=== PATIENT | male | born 1955 | race Two or more races ===

== ENCOUNTER 2018-05-10 10:03 | Emergency (ER) | payer OTHER ==
[~2018-05-10] VITALS: Ht 172.7 cm; Wt 80.7 kg
[2018-05-10] MEDS ORDERED: METFORMIN HCL1000 M1 ORAL (10:11)
[2018-05-10] MEDS ORDERED: GLIPIZIDE5 MG ORAL (10:11)
[2018-05-10 10:24] VITALS: BP 116/60
[2018-05-10] MEDS ORDERED: Sodium Chloride 500ML 500 ML IV ONE (10:24)
--- NOTE | 2018-05-10 10:54 | NUR ---
ED Nurse Note:pt. came with general weakness and dry coughing complain, A/Ox4 skin is intact, left BKA with stump, pt. was placed on 2L O2 via N/C for mely O2 sats, blood sent to labs, given IV fluids and connected to equipment monitor phototypesetting
[2018-05-10 11:08] LABS: ANION GAP 7 mmol/L (5-15); BASOPHILS % (AUTO) 0.8 % (0.0-2.0); BLOOD UREA NITROGEN 10 mg/dL (7-18); CALCIUM 8.5 MG/DL (8.5-10.1); CARBON DIOXIDE 31 MMOL/L (21-32); CHLORIDE 93 MMOL/L (98-107); CREATININE 1.1 MG/DL (0.55-1.30); EOSINOPHILS % (AUTO) 0.8 % (0.0-3.0); HEMATOCRIT 37.9 % (42.0-52.0); HEMOGLOBIN 12.4 G/DL (14.2-18.0); LYMPHOCYTES % (AUTO) 17.2 % (20.0-45.0); MEAN CORPUSCULAR VOLUME 93 FL (80-99); MONOCYTES % (AUTO) 5.3 % (1.0-10.0); NEUTROPHILS % (AUTO) 75.9 % (45.0-75.0); PLATELET COUNT 292 K/UL (150-450); RED BLOOD COUNT 4.09 M/UL (4.70-6.10); RED CELL DISTRIBUTION WIDTH 13.6 % (11.6-14.8); SODIUM 131 MMOL/L (136-145)
--- NOTE | 2018-05-10 11:18 | Diagnostic Imaging Report ---
Indication: Chest pain Comparison: None A single view chest radiograph was obtained. Findings: Interstitial densities, prominent pulmonary vascularity and heart size are demonstrated. No pleural effusion seen. IMPRESSION: Suspected CHF/interstitial edema.
[2018-05-10 11:24] LABS: ALANINE AMINOTRANSFERASE 29 U/L (12-78); ALBUMIN 2.8 G/DL (3.4-5.0); ALBUMIN/GLOBULIN RATIO 0.7 (1.0-2.7); ALKALINE PHOSPHATASE 96 U/L (46-116); ASPARTATE AMINO TRANSFERASE 38 U/L (15-37); BILIRUBIN,TOTAL 0.2 MG/DL (0.2-1.0); CREATINE KINASE 592 U/L (26-308)
[2018-05-10 11:41] LABS: APPEARANCE,URINE CLEAR; BILIRUBIN, URINE NEGATIVE (NEGATIVE); GLUCOSE, URINE (UA) NEGATIVE (NEGATIVE); KETONES,URINE NEGATIVE (NEGATIVE); LEUKOCYTE ESTERASE ,URINE NEGATIVE (NEGATIVE); NITRITE,URINE NEGATIVE (NEGATIVE); PH,URINE 7 (4.5-8.0); PROTEIN,URINE 4+ (NEGATIVE); UROBILINOGEN,URINE NORMAL MG/DL (0.0-1.0)
[2018-05-10 11:44] LABS: COLOR,URINE YELLOW
--- NOTE | 2018-05-10 11:49 | NUR ---
ED Nurse Note:blood cultures were collected and notified about high troponin
[2018-05-10] MEDS ORDERED: Albuterol ud Inhalation HHN ONE (12:00)
--- NOTE | 2018-05-10 12:01 | NUR ---
ED Nurse Note: pt c/o cough and sorethroat, req medication, MD aware of pt's condition.
--- NOTE | 2018-05-10 12:10 | NUR ---
ED Nurse Note: RT at the bedside, pt receiving breathing tx
--- NOTE | 2018-05-10 12:15 | NUR ---
ED Nurse Note: bp prior to lasix administration 121/57 at 1145 bp 1215: 130/70 pt education done. pt verbalized understanding.
--- NOTE | 2018-05-10 12:25 | NUR ---
ED Nurse Note: pt reports breathing tx helped a little but still continued to have cough and sob, ERMD notified.
[2018-05-10 12:35] VITALS: BP 143/64
--- NOTE | 2018-05-10 12:55 | NUR ---
ED Nurse Note:second troponin was drawn
[2018-05-10 13:35] VITALS: BP 130/85
--- NOTE | 2018-05-10 13:36 | NUR ---
ED Nurse Note:pt. was placed on bi-pap by respiratory per ER MD order
--- NOTE | 2018-05-10 14:11 | Emergency Room Report ---
History of Present Illness General Chief Complaint: Generalized Weakness Source: Patient Present Illness HPI Patient presents with complaints of weakness Reports that his diabetes has been fairly poorly controlled also has had increased diarrhea Denies any chest pain he did have some increased cough and congestion Feel some increased shortness of breath with laying down Patient denies any vomiting denies any recent travel denies any pleurisy denies any fevers He also did have some mild increased body aches Denies any neck pain or photophobia Allergies: Coded Allergies: No Known Allergies (Unverified , 05/10/18) Patient History Past Medical History: see triage record Pertinent Family History: none Reviewed Nursing Documentation: PMH: Agreed; PSxH: Agreed Nursing Documentation-PMH Past Medical History: No History, Except For Hx Diabetes: Yes - Right leg above knee amputation Review of Systems All Other Systems: negative except mentioned in HPI Physical Exam Vital Signs Date Time Temp Pulse Resp B/P (MAP) Pulse Ox O2 Delivery O2 Flow Rate FiO2 05/10/18 10:07 98.4 88 18 116/60 80 Room Air 05/10/18 10:24 3.0 05/10/18 10:24 93 Sp02 EP Interpretation: reviewed, normal General Appearance: no apparent distress Head: normocephalic, atraumatic Eyes: bilateral eye PERRL, bilateral eye EOMI ENT: normal pharynx Neck: supple Respiratory: no retraction, no accessory muscle use, crackles - Diffusely Cardiovascular #1: regular rate, rhythm Gastrointestinal: non tender, soft Musculoskeletal: other - Left lower extremity below the knee amputation with prosthetic in place Neurologic: alert, oriented x3, responsive Skin: pallor Lymphatic: no adenopathy Procedures Critical Care Time Critical Care Time 50 minutes for multiple re-evaluations critical findings concerning for cardiac injury multiple consultants not including any procedural time Medical Decision Making Diagnostic Impression: Primary Impression: Non-STEMI (non-ST elevated myocardial infarction) Additional Impression: CHF (congestive heart failure) ER Course Patient is a fairly complex patient with multiple differential to consideration including but not limited to cardiac cardiopulmonary and vascular emergencies Patient's complaints and presentations are concerning After extensive workup and evaluation patient's x-ray was concerning for pulmonary congestion Blood work also revealed elevated troponin level Patient was placed on BiPAP initially considered appropriate for transfer however After repeat troponin is showing some increased findings patient requires further emergent care and Deemed unstable contact is made with inpatient cardiology and patient admitted for further care Labs Test 1/11/19 10:45 05/10/18 11:30 05/10/18 13:15 White Blood Count 12.0 K/UL (4.8-10.8) Red Blood Count 4.09 M/UL (4.70-6.10) Hemoglobin 12.4 G/DL (14.2-18.0) Hematocrit 37.9 % (42.0-52.0) Mean Corpuscular Volume 93 FL (80-99) Mean Corpuscular Hemoglobin 30.2 PG (27.0-31.0) Mean Corpuscular Hemoglobin Concent 32.7 G/DL (32.0-36.0) Red Cell Distribution Width 13.6 % (11.6-14.8) Platelet Count 292 K/UL (150-450) Mean Platelet Volume 5.8 FL (6.5-10.1) Neutrophils (%) (Auto) 75.9 % (45.0-75.0) Lymphocytes (%) (Auto) 17.2 % (20.0-45.0) Monocytes (%) (Auto) 5.3 % (1.0-10.0) Eosinophils (%) (Auto) 0.8 % (0.0-3.0) Basophils (%) (Auto) 0.8 % (0.0-2.0) Sodium Level 131 MMOL/L (136-145) Potassium Level 4.0 MMOL/L (3.5-5.1) Chloride Level 93 MMOL/L (98-107) Carbon Dioxide Level 31 MMOL/L (21-32) Anion Gap 7 mmol/L (5-15) Blood Urea Nitrogen 10 mg/dL (7-18) Creatinine 1.1 MG/DL (0.55-1.30) Estimat Glomerular Filtration Rate > 60 mL/min (>60) Glucose Level 192 MG/DL (74-106) Calcium Level 8.5 MG/DL (8.5-10.1) Total Bilirubin 0.2 MG/DL (0.2-1.0) Aspartate Amino Transf (AST/SGOT) 38 U/L (15-37) Alanine Aminotransferase (ALT/SGPT) 29 U/L (12-78) Alkaline Phosphatase 96 U/L (46-116) Total Creatine Kinase 592 U/L (26-308) Creatine Kinase MB 8.0 NG/ML (0.0-3.6) Creatine Kinase MB Relative Index 1.3 Troponin I 0.667 ng/mL (0.000-0.056) 1.315 ng/mL (0.000-0.056) Pro-B-Type Natriuretic Peptide 2404 pg/mL (0-125) Total Protein 6.6 G/DL (6.4-8.2) Albumin 2.8 G/DL (3.4-5.0) Globulin 3.8 g/dL Albumin/Globulin Ratio 0.7 (1.0-2.7) Lipase 70 U/L (73-393) Urine Color Yellow Urine Appearance Clear Urine pH 7 (4.5-8.0) Urine Specific [place] 1.010 (1.005-1.035) Urine Protein 4+ (NEGATIVE) Urine Glucose (UA) Negative (NEGATIVE) Urine Ketones Negative (NEGATIVE) Urine Blood 2+ (NEGATIVE) Urine Nitrite Negative (NEGATIVE) Urine Bilirubin Negative (NEGATIVE) Urine Urobilinogen Normal MG/DL (0.0-1.0) Urine Leukocyte Esterase Negative (NEGATIVE) Urine RBC 2-4 /HPF (0 - 0) Urine WBC 0 /HPF (0 - 0) Urine Squamous Epithelial Cells None /LPF (NONE/OCC) Urine Bacteria None /HPF (NONE) Urine Opiates Screen Negative (NEGATIVE) Urine Barbiturates Screen Negative (NEGATIVE) Phencyclidine (PCP) Screen Negative (NEGATIVE) Urine Amphetamines Screen Negative (NEGATIVE) Urine Benzodiazepines Screen Negative (NEGATIVE) Urine Cocaine Screen Negative (NEGATIVE) Urine Marijuana (THC) Screen Positive (NEGATIVE) EKG Diagnostic Results Rate: normal Rhythm: NSR ST Segments: other - Nonspecific ST changes no obvious ST elevation indeterminate mild interventricular block Rhythm Strip Diag. Results EP Interpretation: yes Rate: 70 Rhythm: NSR, no PVC's, no ectopy Chest X-Ray Diagnostic Results Chest X-Ray Diagnostic Results : Chest X-Ray Ordered: Yes # of Views/Limited/Complete: 1 View Indication: Chest Pain EP Interpretation: Yes Interpretation: no consolidation, no pneumothorax, other - Pulmonary congestion Impression: Other - Pulmonary congestion Electronically Signed by: Rhona Foote DO Last Vital Signs Date Time Temp Pulse Resp B/P (MAP) Pulse Ox O2 Delivery O2 Flow Rate FiO2 05/10/18 13:35 85 24 130/85 96 Bi-pap 05/10/18 13:34 50 05/10/18 12:35 98.4 3.0 Status: improved Disposition: ADMITTED INPATIENT Condition: Critical Referrals: NON PHYSICIAN (PCP) Rhona Foote DO May 10, 2018 14:11
--- NOTE | 2018-05-10 14:14 | NUR ---
ED Nurse Note:pt. refused bi-pap, called respiratory
[2018-05-10] MEDS: Nitroglycerin 2% oint pkt TOPIC SCH ×2 (15:15→18:00)
[2018-05-10 15:52] VITALS: BP 119/63
[2018-05-10] MEDS ORDERED: NovoLOG Insulin Flexpen SUBQ SCH ×2 (16:30→16:50)
--- NOTE | 2018-05-10 17:00 | NUR ---
ED Nurse Note:called [facility] report to [facility] -they not able to take report at this time
--- NOTE | 2018-05-10 17:10 | Cardiology Report ---
APPROVED REPORT EXAM: Two-dimensional and M-mode echocardiogram with Doppler and color Doppler. INDICATION ACUTE MYOCARD INFARCTION M-Mode DIMENSIONS IVSd1.2 (0.7-1.1cm)Left Atrium (MM)3.4 (1.6-4.0cm) LVDd5.4 (3.5-5.6cm)Aortic Root3.5 (2.0-3.7cm) PWd1.2 (0.7-1.1cm)Aortic Cusp Exc.1.6 (1.5-2.0cm) IVSs1.6 cm LVDs3.1 (2.5-4.0cm) PWs1.4 cm Normal left ventricular chamber size. Global left ventricular hypokinesis . Left ventricular ejection fraction estimated to be 40 %. No evidence of left ventricular hypertrophy . Right sided pricardial effusion present with early diastolic collapse with respiratory variotion . All other cardiac cardiac chamber sizes are within normal limits. Focal aortic valve sclerosis with adequate cusp excursion. Thickened mitral valve leaflets with normal excursion. Mitral annulus and aortic root calcification. Normal pulmonic valve structure. Normal tricuspid valve structure. IVC dilated at 2.5 cm with slightly physiologic collapse suggestive of increased RA pressure. A color flow and spectral Doppler study was performed and revealed: Mild aortic regurgitation. Trace mitral regurgitation. Normal left ventricular diastolic function . Mild tricuspid regurgitation. Tricuspid systolic velocities suggests peak right ventricular systolic pressure of 44mmHg, consistent with moderate pulmonary hypertension . Dr. Lo notified.
--- NOTE | 2018-05-10 17:15 | NUR ---
ED Nurse Note:spoke to ICU charge nurse from [facility]- she said they dont have nurse till 1899
[2018-05-10 17:28] VITALS: BP 115/52
--- NOTE | 2018-05-10 17:28 | NUR ---
ED Nurse Note:pt. sleeping no signs of distress noted, continue monitor till transportqation arrives
--- NOTE | 2018-05-10 18:39 | NUR ---
ED Nurse Note:called report to [facility]-given to Veronica ARIAS
[2018-05-10 19:01] VITALS: BP 115/52
--- NOTE | 2018-05-10 19:03 | NUR ---
ED Nurse Note:pt. was picked up by ALS transport for transfer, report given
[2018-05-10] MEDS ORDERED: Metoprolol Tartrate 50mg tab ORAL SCH (21:00)
[2018-05-10] MEDS ORDERED: Enoxaparin 80mg Inj SUBQ SCH (21:00)
[2018-05-11] MEDS ORDERED: Aspirin EC 81mg tab ORAL SCH (09:00)
--- NOTE | 2018-05-12 15:31 | Cardiology Report ---
APPROVED REPORT EKG Measurement Heart [id number] Normal sinus rhythm Possible Left atrial enlargement Abnormal ECG
--- NOTE | 2018-05-13 04:00 | Consultation ---
DATE OF CONSULTATION: 05/10/2018 CARDIOLOGY CONSULTATION AND CRITICAL CARE NOTE FOR 90 MINUTES CONSULTING PHYSICIAN: Yves Lo M.D. REQUESTING PHYSICIAN: Rhona Foote D.O. The patient is in the emergency room. REASON FOR CONSULTATION AND CRITICAL CARE TIME: Acute myocardial infarction and cardiogenic shock with pericardial effusion. HISTORY OF PRESENT ILLNESS: This is a 62-year-old male with a known history of peripheral artery disease and generalized atherosclerosis as well as hypertension and diabetes mellitus, who presented to the emergency room with weakness and several days of worsening diarrhea and poorly controlled diabetes. He also noted increasing shortness of breath, lying flat, generalized body aches, cough, and congestion. He was noted to have abnormal diagnostic studies in the emergency room and I was consulted to assist with care. PAST MEDICAL HISTORY: Includes type 2 diabetes mellitus, hypertension, peripheral artery disease, and status post right BKA. ALLERGIES: None. FAMILY HISTORY: Noncontributory. SOCIAL HISTORY: Active smoker. No alcohol or substance abuse. REVIEW OF SYSTEMS: He notes that he had failed attempts at revascularization of his right lower extremity in the past and ultimately amputation was required. Otherwise, he has not had any new signs of ischemia. There is no history of prostate cancer or elevated PSA. There is no history of thyroid disorder. His diabetes is managed with oral therapy. He has been on anti-lipid drugs. There is no history of stroke. He has not been on steroids. He notes congestion at times with cough and more recently with sputum production. There is no history of retinopathy and he is unaware of any kidney disease. PHYSICAL EXAMINATION: VITAL SIGNS: Blood pressure 116/60, pulse 88, respiratory rate 18, and oxygen saturation 80% on room air. HEENT: Conjunctivae pink. Oropharynx clear. NECK: Supple. Jugular venous pressure elevated. Accessory muscle use noted. No Kussmaul sign. LUNGS: With coarse breath sounds and rhonchi. CARDIAC: Regular rhythm and rate. Normal S1 and S2 with no rub. ABDOMEN: Soft. EXTREMITIES: With right BKA and no edema on the left. LABORATORY AND DIAGNOSTIC DATA: EKG reveals sinus rhythm with arrhythmia and diffuse ST-T wave changes. White count 12 and hemoglobin 12.4. BUN 10, creatinine 1.1, and bicarbonate 31. Troponin is 0.667, repeated is 1.31. Pro-natriuretic peptide is 2400. Albumin 2.8. Echocardiogram revealed global hypokinesis with ejection fraction of 40% and moderate prior myocardial perfusion appears to be loculated on the right with early diastolic collapse of the right ventricle. IMPRESSION: 1. Acute myocardial infarction. 2. Pericardial effusion with early tamponade. 3. Acute systolic and diastolic congestive heart failure. 4. COPD with community-acquired bronchopneumonia. 5. Type 2 diabetes mellitus. PLAN: In critical care time. The case was discussed with the patient at bedside as well as family members. The patient's condition was reviewed including his diagnostic echocardiogram with the emergency room physician. Contact was made on several occasions at tertiary care facility for transferring this patient as he will require invasive cardiac interventions including coronary angiography and possible pericardiocentesis. Ultimately disposition was secured under my care at [facility] and further plans were discussed with the nursing supervisor evaporator there for appropriate disposition and therapeutic interventions upon arrival. In the interim, he was beta-blocked, given anti-platelet therapy and diuretic therapy, and initiated on anticoagulation. Further orders were as noted in the care plan and record. Yves Lo M.D. : ELEANOR JOB#: [id number] CC:
== END 2018-05-10 19:10 | disposition short-term general hospital (02) ==
LOC: EMR 10:55 → EDBEDREQ 14:12 → EDBEDREQSVC 14:12 → EDBEDREQ 14:42 → EMR 19:10
DX: I21.4 Non-ST elevation (NSTEMI) myocardial infarction (principal); I50.9 Heart failure, unspecified; E11.9 Type 2 diabetes mellitus without complications; Z89.611 Acquired absence of right leg above knee
CPT/HCPCS: 36415; 71045; 80053; 80307; 81003; 82550; 82553; 83690; 83880; 84484; 85025; 87040; 93005; 93306; 94640; 94664; 96365; 96366; 96375; 99285; J1940; J7040